=== PATIENT | female | born 1970 | race Caucasian/White ===

== ENCOUNTER 2019-08-30 14:59 | Inpatient (IN) | payer OTHER ==
[~2019-08-30] VITALS: Ht 157.5 cm; Wt 91.5 kg
[2019-08-30] MEDS ORDERED: tylenol 2 tabs (15:07)
[2019-08-30] MEDS ORDERED: KEFL250C11 (17:08)
[2019-08-30] MEDS ORDERED: PHEN-501 (17:08)
[2019-08-30] MEDS ORDERED: NS 1,000 ML IV ONE (17:15)
[2019-08-30] MEDS ORDERED: PANTOPRAZOLE 40MG INJ (PROTONIX) (C9113) IV ONE (17:15)
[2019-08-30] MEDS ORDERED: KETOROLAC 30 MG/ML VIAL (J1885) IV ONE (17:15)
[2019-08-30] MEDS ORDERED: ONDANSETRON 4MG/2ML VIAL (J2405) IV ONE (17:15)
[2019-08-30 17:31] LABS: BASO # 0.1 10^3/uL (0.0-0.2); BASO % 0.3 % (0.0-1.0); EOS % 0.1 % (0.0-3.0); HEMATOCRIT 35.2 % (36.0-47.0); HEMOGLOBIN 11.1 g/dl (12.0-15.5); LYMPH # 2.2 10^3/uL (1.5-5.0); LYMPH % 7.8 % (24.0-44.0); MEAN CORPUSCULAR HEMOGLOBIN 32.5 pg (27.0-33.0); MEAN CORPUSCULAR HGB CONC 31.5 g/dl (32.0-36.5); MEAN CORPUSCULAR VOLUME 102.9 fl (80.0-96.0); MONO # 1.9 10^3/uL (0.0-0.8); MONO % 6.6 % (0.0-5.0); NEUTROPHILS % 83.1 % (36.0-66.0); PLATELET COUNT, AUTOMATED 447 10^3/uL (150-450); RED BLOOD COUNT 3.42 10^6/uL (4.00-5.40); WHITE BLOOD COUNT 28.9 10^3/uL (4.0-10.0)
[2019-08-30 17:47] LABS: ALBUMIN 2.6 GM/DL (3.2-5.2); ALT/SGPT 63 U/L (12-78); BILIRUBIN,DIRECT 0.4 MG/DL (0.0-0.2); BILIRUBIN,TOTAL 0.8 MG/DL (0.2-1.0); BLOOD UREA NITROGEN 9 MG/DL (7-18); CALCIUM LEVEL 8.7 MG/DL (8.5-10.1); CARBON DIOXIDE LEVEL 29 MEQ/L (21-32); CHLORIDE LEVEL 101 MEQ/L (98-107); CREATININE FOR GFR 0.75 MG/DL (0.55-1.30); GLOMERULAR FILTRATION RATE > 60.0 (>58); GLUCOSE, FASTING 131 MG/DL (70-100); LIPASE 58 U/L (73-393); POTASSIUM SERUM 3.4 MEQ/L (3.5-5.1); SODIUM LEVEL 139 MEQ/L (136-145); TOTAL PROTEIN 6.9 GM/DL (6.4-8.2)
[2019-08-30] MEDS: NS 1,000 ML IV SCH ×3 (19:06→22:41)
--- NOTE | 2019-08-30 19:16 | REPVR ---
PROCEDURE INFORMATION: Exam: CT Abdomen And Pelvis Without Contrast Exam date and time: 08/30/2019 5:48 PM Age: 49 years old Clinical indication: Abdominal pain; Additional info: Abd pain TECHNIQUE: Imaging protocol: Computed tomography of the abdomen and pelvis without contrast. Radiation optimization: All CT scans at this facility use at least one of these dose optimization techniques: automated exposure control; mA and/or kV adjustment per patient size (includes targeted exams where dose is matched to clinical indication); or iterative reconstruction. COMPARISON: No relevant prior studies available. FINDINGS: Liver: Fatty infiltration of the liver. Liver is enlarged and measures 21 cm. Gallbladder and bile ducts: Normal. No calcified stones. No ductal dilation. Pancreas: Normal. No ductal dilation. Spleen: Normal. No splenomegaly. Adrenals: Normal. No mass. Kidneys and ureters: There is right hydronephrosis and hydroureter. Mild caliceal prominence and ureteral prominence on the left. Stomach and bowel: Scattered diverticulosis of the sigmoid colon. Appendix: No evidence of appendicitis. Intraperitoneal space: Unremarkable. No free air. No significant fluid collection. Vasculature: Unremarkable. No abdominal aortic aneurysm. Lymph nodes: There are multiple para-aortic lymph nodes with the largest measuring 1.2 cm in the left para-aortic region. Bladder: Unremarkable as visualized. Reproductive: The intrauterine device is seen. Bicornuate enlarged uterus. The intrauterine device lies in the lower uterine segment. The uterus is heterogenous and measures 7.6 x 11.4 x 11.4 cm. There is periuterine fat stranding. Bones/joints: Unremarkable. No acute fracture. Soft tissues: Unremarkable. IMPRESSION: Uterus is enlarged and heterogeneous with periuterine fat stranding with multiple prominent lymph nodes in the para-aortic region with bilateral hydronephrosis and hydroureter, right greater than left. Finding may represent uterine infection or malignancy or both. The intrauterine device lies abnormally in the lower uterine segment, increasing the possibility of fertility. DJ INSTRUCTOR consult is recommended with further evaluation of the uterus with ultrasound. Hepatomegaly with hepatic steatosis. Electronically signed by: Pedro Frankel On 08/30/2019 19:16:21 PM
[2019-08-30] MEDS ORDERED: cefTRIAXone SOD 1 GM in D5W MINI-BAG PLUS 50 ML IV ONE (20:30)
[2019-08-30] MEDS ORDERED: DOXYCYCLINE HYCLATE 100 MG TAB PO SCH (21:00)
[2019-08-30 21:32] LABS: CHLAMYDIA DNA AMPLIFICATION NEGATIVE (NEGATIVE); GC DNA AMPLIFICATION NEGATIVE (NEGATIVE)
[2019-08-30] MEDS ORDERED: PROAAER10 INH (21:39)
[2019-08-30] MEDS ORDERED: ALEV220T22 PO (21:39)
[2019-08-30] MEDS ORDERED: ACET-897 PO (21:39)
[2019-08-30] MEDS ORDERED: hydrOXYzine 10 MG TAB PO STA (21:43)
--- NOTE | 2019-08-30 21:44 | REPVR ---
PROCEDURE INFORMATION: Exam: US Pelvis Complete, Transabdominal Exam date and time: 08/30/2019 8:31 PM Age: 49 years old Clinical indication: Abnormal findings; Abnormal imaging test; Additional info: Uterine stranding TECHNIQUE: Imaging protocol: Real-time transabdominal pelvic ultrasound with image documentation. Complete exam. COMPARISON: CT ABD PELVIS W/O CONTRAST 08/30/2019 5:46 PM FINDINGS: Uterus/cervix: Intrauterine device is in the lower uterine segment. Endometrial thickness is normal at 6 mm. The uterus is mildly enlarged measuring 14 x 7 x 6 cm. No discrete measurable uterine or endometrial mass is seen. Right adnexa: Right ovary is enlarged measuring 8.2 x 6.2 x 6.3 cm. Multiple complex cystic areas are present within the right ovary measuring up to 5.5 cm. Normal with Doppler blood flow in the right ovary. No hydrosalpinx. Left adnexa: Left ovary is enlarged measuring 6.9 x 6.7 x 6.3 cm. Normal blood flow in the left ovary. Multiple complex cystic areas are present in the left ovary, similar to the right side. No hydrosalpinx. Free fluid: None. Bladder: Normal. IMPRESSION: 1. Heterogeneous enlarged uterus. Ovaries also appear large and heterogeneous, but the ovaries are not separable from the adjacent uterus. Findings may be due complex cysts in the ovaries. However findings may be secondary to a bicarbonate uterus with multiple fibroids. Pelvic MRI may be beneficial to better delineate the anatomy. 2. IUD lies in the lower uterine segment. 3. No evidence of torsion. Electronically signed by: Bud Arora On 08/30/2019 21:44:20 PM
[2019-08-30] MEDS ORDERED: LORazepam 1 MG TAB PO STA (22:33)
[2019-08-30] MEDS ORDERED: lisinopriL 10 MG TAB PO ONE (22:45)
[2019-08-30] MEDS ORDERED: POTASSIUM CHLORIDE 10 MEQ SR TABLET PO ONE (23:00)
[2019-08-31] VITALS: BP 154/99
[2019-08-31 00:15] VITALS: BP 154/99
[2019-08-31] MEDS: ACETAMINOPHEN TAB 650MG DOSE (2X325MG) PO PRN ×3 (00:16→14:30)
[2019-08-31] MEDS ORDERED: KETOROLAC 30 MG/ML VIAL (J1885) IV ONE ×3 (02:15→18:30)
[2019-08-31] MEDS: cefoTEtan DISODIUM 2 GM in D5W MINI-BAG PLUS 50 ML IV SCH ×2 (05:48→18:28)
[2019-08-31 06:00] VITALS: BP 113/70
[2019-08-31 06:46] LABS: HEMATOCRIT 31.2 % (36.0-47.0); HEMOGLOBIN 10.1 g/dl (12.0-15.5); MEAN CORPUSCULAR HEMOGLOBIN 33.4 pg (27.0-33.0); MEAN CORPUSCULAR HGB CONC 32.4 g/dl (32.0-36.5); MEAN CORPUSCULAR VOLUME 103.3 fl (80.0-96.0); PLATELET COUNT, AUTOMATED 418 10^3/uL (150-450); RED BLOOD COUNT 3.02 10^6/uL (4.00-5.40); WHITE BLOOD COUNT 24.2 10^3/uL (4.0-10.0)
[2019-08-31 07:05] LABS: BLOOD UREA NITROGEN 13 MG/DL (7-18); CALCIUM LEVEL 8.1 MG/DL (8.5-10.1); CARBON DIOXIDE LEVEL 28 MEQ/L (21-32); CHLORIDE LEVEL 103 MEQ/L (98-107); CREATININE FOR GFR 0.74 MG/DL (0.55-1.30); GLOMERULAR FILTRATION RATE > 60.0 (>58); GLUCOSE, FASTING 132 MG/DL (70-100); POTASSIUM SERUM 4.1 MEQ/L (3.5-5.1); SODIUM LEVEL 138 MEQ/L (136-145)
[2019-08-31 07:39] LABS: HCG, SERUM QUALITATIVE NEGATIVE (NEGATIVE)
[2019-08-31] MEDS ORDERED: DOCUSATE SODIUM 100 MG CAP PO PRN (08:45)
[2019-08-31] MEDS ORDERED: INFLUENZA QUADRIVALENT PF VACCINE 0.5ML SYRINGE (90686) IM ONE (09:00)
[2019-08-31] MEDS: ENOXAPARIN 40 MG/0.4 ML SYRINGE (J1650) SC SCH (09:00)
--- NOTE | 2019-08-31 09:00 | HPE ---
DATE OF ADMISSION: 08/30/2019 CHIEF COMPLAINT: Abdominal pain and abnormal laboratories. HISTORY OF PRESENT ILLNESS: This is a 49-year-old female who began having abdominal pain, constipation and fevers approximately a week and half ago on Thursday08/20/2019. She states that the night before she was having a few drinks with a friend and they spent the evening in the hot tub relaxing. She woke up on 08/20/2019, constipated with fevers and chills. She was having abdominal pain and she was unable to have a bowel movement. She waited for about a week before presenting to Urgent Care on 08/28/2019 where she was diagnosed with a urinary tract infection. She was put on cephalexin for 2 days and was called back by the urgent care stating that her urine culture had been negative. She went back to the urgent care this morning on 08/30/2019 and was subsequently sent to the emergency department for high labs. She is a G3, P2-0-1-2, 49-year-old female. She has an intrauterine device (IUD) (ParaGard) that she has had for about 7 to 10 years. She says that her last intercourse was about 1 month ago. She has had no new partners and has been with the same partner for years. She denies any dyspareunia, dysuria or history of sexually transmitted infections. Her last Pap was about 15 years ago, which was positive for HPV and dysplasia. This was treated with a LEEP and she has had no abnormal Pap smear since. She is due for a Pap in the next month or so. She does have a history of using oral contraceptive pills when she was in her teenage years. She does not remember whether these were estrogen only or combined. She was also previously on a NuvaRing. Upon arrival to the emergency department, she was found to have an elevated white count at 28.9 with a left shift. Pelvic exam revealed a bright green vaginal discharge with mild cervical motion tenderness. Swabs taken were negative for gonorrhea, chlamydia and trichomoniasis. CT of the abdomen revealed a heterogeneous enlarged uterus with her uterine fat stranding and periaortic lymphadenopathy as well as right hydronephrosis and hydroureter. The urinalysis also showed urine WBCs too numerous to count, 3+ leukocyte esterase. 76 urine RBCs, 2+ bacteria and nitrite positive. Subsequently, the hospitalist service was called for admission. PAST MEDICAL HISTORY: History of bronchitis several months ago. History of tobacco abuse, quit in April. PAST SURGICAL HISTORY: None. ALLERGIES: None. FAMILY HISTORY: No family history of uterine, ovarian, endometrial or breast cancer. No family history of liver syndrome. Her father 6 months ago, she does not remember the cause. Her brother is dying from amyotrophic lateral sclerosis (ALS). HOME MEDICATIONS: - Tylenol 500 mg every 6 hours as needed for pain - albuterol sulfate inhaler 2 puffs inhaled four times a day as needed for shortness of breath - Naproxen 440 mg by mouth twice a day as needed for pain REVIEW OF SYSTEMS: CONSTITUTIONAL: Positive for fevers and chills with a maximum temperature (t-max) of 103 about 3 days ago. Denies drenching night sweats or changes to her weight. EYES: Denies any visual changes, headaches, eye pain, double vision. EARS, NOSE AND THROAT: Denies runny nose, epistaxis, sinus pain, stuffy ears, tinnitus, gingival bleeding, sore throat or odynophagia. CARDIOVASCULAR: Denies any new chest pain, shortness of breath, paroxysmal nocturnal dyspnea, orthopnea or edema. RESPIRATORY: Denies any cough, sputum, wheezes or hemoptysis. GASTROINTESTINAL:. Positive for abdominal pain and constipation and denies any nausea, vomiting, diarrhea, obstipation, hematemesis, hematochezia, melena or tenesmus. She does endorse feeling like her abdomen has gotten slightly larger over the last couple of weeks. GENITOURINARY: Denies any incontinence, dysuria, hematuria, nocturia, polyuria, hesitancy or dribbling. MUSCULOSKELETAL: Denies any new muscle pain, stiffness, joint swelling or decreased range of motion. INTEGUMENTARY: Denies any pruritus, rashes, striae, or lesions. NEUROLOGIC: Denies any changes to sight / smell / hearing / taste, seizures, headaches. PSYCHIATRIC: Positive for some anxiety. Denies any new depression, paranoia, anhedonia or episodes of brian. ENDOCRINE: Denies any tremor, palpitations or visual disturbances, denies dry skin. Positive for irregular periods over the last year, as well as hot flashes. HEMATOLOGIC: Denies any anemia, purpura or petechiae. Denies easy bruising or bleeding. LYMPHATIC: Denies any new lumps or bumps anywhere. PHYSICAL EXAMINATION: Vitals: Temperature 97.8, pulse is 102 and regular, respiratory rate 16 and unlabored, blood pressure 173/92, pulse ox is 95% on room air. GENERAL: This is a middle-aged obese female in no acute distress. HEENT: Atraumatic, normocephalic. Anicteric sclera. No conjunctival injection, mucous membranes are moist. No deformities are noted. NECK: No jugular venous distention (JVD), supple, no masses. No thyromegaly. LUNGS: Clear to auscultation bilaterally. No wheezes, rhonchi or rales. HEART: Regular rate and rhythm. Mildly tachycardiac. No murmurs, gallops or rubs. ABDOMEN: Obese, somewhat protuberant. No tympany to percussion. Mild tenderness to palpation in the lower quadrants. The uterine fundus is palpated 2 cm below the umbilicus. No inguinal adenopathy is noted. EXTREMITIES: Muscle strength 5/5 throughout. No lower extremity edema bilaterally. Capillary refill is brisk and pulses are 2+ bilaterally for both posterior tibialis and dorsalis pedis NEUROLOGIC: Cranial nerves II-XII grossly intact. Deep tendon reflexes 2+ bilaterally. Sensation is intact. Muscle strength is 5/5 bilaterally. No neurological deficits noted. PSYCHIATRIC: Mood is mildly anxious, but affect is appropriate. SKIN: No rashes or lesions were noted. LABORATORY DATA: CBC: WBC 28.9, hemoglobin 11.1, hematocrit 35.2, platelet count is 447. Differential shows 83% neutrophils, 8% lymphocytes 7% monocytes. Chemistry: Sodium 134, potassium 3.4, chloride 101, carbon dioxide 29, anion gap 9, BUN 9, creatinine 0.75, glucose 131, calcium 8.7, total bilirubin 0.8, direct bilirubin 0.4, AST 35, ALT 63, alkaline phosphatase 166, total protein 6.9, albumin 2.6, lipase 58. Urinalysis: Cloudy and esther in appearance with a pH of 5.0, specific gravity of 1.010. Urine protein 1+, trace ketones, 1+ blood and positive nitrites. Urobilinogen 2.0, 3+ leukocyte esterase, urine WBCs too numerous to count, urine RBCs 76, urine bacteria 2+. Serology: Gonorrhea, chlamydia and trichomoniasis negative. Microbiology: Wet prep showed moderate epithelial cells, moderate WBCs, many short rods and a few clue cells. Cervical culture Gram stain and genital culture pending. Urine culture pending. IMAGING STUDIES: CT of the abdomen and pelvis showed an enlarged and heterogeneous uterus measuring 7.6 x 11.4 x 11.4 cm with periuterine fat stranding with an IUD in the lower uterine segment. Multiple periaortic lymph nodes with the largest measuring 1.2 cm in the left para-aortic region. Right hydronephrosis and hydroureter with mild caliceal prominence and ureteral prominence on the left. Scattered diverticulosis of the sigmoid colon. Hepatomegaly with hepatic steatosis. Pelvic ultrasound shows a heterogeneous enlarged uterus measuring 14 x 7 x 6 cm without any discrete measurable uterine or endometrial mass. Enlarged to right and left ovaries, the right ovary has multiple complex cystic areas measuring up to 5.5 cm and the left ovary has multiple complex cystic areas as well. IUD in the lower uterine segment. ASSESSMENT: This is a 49-year-old G3, P 2-0-1-2 presenting with constipation, fevers and chills with a maximum temperature (t-max) of 103 about 3 days ago found to have uterine enlargement on imaging and an elevated white count of 20.9. PLAN: 1. Sepsis secondary to uterine pathology. Elevated white count, fevers and tachycardia. We will cover for pelvic inflammatory disease with cefotetan 2 grams IV q. 12 and doxycycline 100 mg p[address]o. q. [address] Horne from [facility] was consulted, we appreciate his help. Gonorrhea, chlamydia and trichomonas were negative. Cervical culture is pending. We will also obtain blood cultures, though the patient was already treated with Rocephin in the emergency room. Wet prep showed moderate epithelial cells, moderate WBCs, many short rods and a few clue cells. CA-125 has been ordered to assess for malignancy. 2. Deep vein thrombosis (DVT) prophylaxis with Lovenox. DISPOSITION: Admit to medical/surgical inpatient as we expect more than two midnights.
[2019-08-31] MEDS: DOXYCYCLINE HYCLATE 100 MG in D5W MINI-BAG PLUS 100 ML IV SCH ×2 (09:25→21:26)
--- NOTE | 2019-08-31 10:14 | CR ---
DATE OF CONSULTATION: 08/31/2019 CONSULTING SERVICE: [facility] RIDES MANAGER. HISTORY: 49-year-old female with abdominal pain, constipation and fevers starting approximately 7-10 days prior to admission. The night before, she started having problems. She spent the evening with friends and was relaxing in a hot tub. She woke up on 08/20/2019 with fevers and chills. The fever was as high as 103 Fahrenheit. She waited a week to see if it improved, but continued to have fevers on and off. Her abdominal pain which was sharp and intermittent gradually improved. She presented to urgent care and was started on Keflex for a possible urinary tract infection (UTI). She subsequently presented to the emergency department with persistent fevers. She has had an intrauterine device in place for 7 years. She has had no sexual activity in the last month. She has one partner for many years. MEDICAL HISTORY: 1. Bronchitis. 2. History of tobacco use. She quit cigarettes in April 2019. SURGICAL HISTORY: section times two. ALLERGIES: None. FAMILY HISTORY: No family history of gynecologic malignancy. Her brother has been diagnosed with amyotrophic lateral sclerosis (ALS). SOCIAL HISTORY: The patient lives in [place]. She quit cigarettes. She denies drug use. MEDICATIONS: - Tylenol - albuterol - naproxen PHYSICAL EXAMINATION: Temperature 97.8, pulse 102, respiratory rate 16, blood pressure 173/92, oxygen saturation 95% on room air. She is in no apparent distress. Head and Neck Exam: Normal. Lungs: Clear. Heart: Regular rate and rhythm. Abdomen: Nontender to mild palpation. Soft. No masses palpable. Extremities: Nontender. Neurologically intact cranial nerves. Extremities: Nontender. LABS: White blood count 28.9, hemoglobin 11.1 grams per deciliter. Ultrasound shows enlarged uterus 14 x 7 x 6 cm, possibly enlarged right and left ovaries with complex cystic areas. CT scan confirms presence of pelvic masses and possible mildly enlarged periaortic lymph nodes. Mild right hydronephrosis. Mild hepatomegaly. ASSESSMENT: 49-year-old, (G) 3, para (P) 2-0-1-2 female with abdominal pain and fevers consistent with probable pelvic inflammatory disease. Treat with appropriate antibiotics for pelvic inflammatory disease (PID). Will look for clinical improvement over 48 hours prior to discharge. In the meantime, will draw labs for tumor markers to assess for possible malignancy. Will continue to follow. Appreciate this consult.
[2019-08-31] MEDS ORDERED: metroNIDAZOLE 500 MG in IV 1 EA IV SCH (10:15)
--- NOTE | 2019-08-31 10:37 | IPNPDOC ---
Text Note Date of Service The patient was seen on 08/31/19. NOTE Subjective: Patient is a 49-year-old female presented to the hospital with se lang lower abdominal pain. Patient states that she went into a hot tub had not been treated with any chemicals for some time a few weeks ago. She states that she also started feeling feverish and took her temperature and had a fever. She went to the urgent care who initially diagnosed her with a urinary tract infection and gave her cephalexin for antibiotics. The urine culture came back negative so they called her and told her she does not need to continue with antibiotics. She also took Pyridium which did not help with her pain. She still states that she has lower abdominal pain at this time. She states that she feels constipated when she gets her menstrual cycle as she does not want to push too hard to have a bowel movement as she is afraid that she will bleed. Patient says since being in the hospital, she does not feel feverish however, her pain is still mildly uncontrolled. Patient is very anxious because one of the imaging studies that was performed so there may be a possible malignancy however, the ultrasound did not make mention of this and that report and this was performed a fter the CT scan. Patient is very concerned that she may have a possible malignancy. Patient states that she is feeling somewhat better with IV fluid hydration. Review of systems General: Patient denies fevers HEENT: Patient denies headaches Cardiovascular: Patient denies chest pain Respiratory: Patient denies shortness of breath, cough GI: Patient endorses lower abdominal pain. : Patient endorses increased frequency of urination Neurological: Patient denies numbness or tingling in extremities Extremities: Patient denies swelling or pain in extremities Objective: Vitals: (see below) General: An oriented female patient who was walking gingerly out of the bathroom back to her bed when I walked into the room. Patient did not appear to be in any acute distress. HEENT: Normocephalic, atraumatic, moist mucous membranes. Cardiac: Regular rate and rhythm, no murmurs, normal S1, normal S2 Pulm: Clear to auscultation bilaterally. No wheezes, rhonchi, rales Abd: Mild tenderness to palpation of the lower abdominal quadrants and suprapubic area. Ext: No edema bilateral lower extremities Labs (see below) Images: A CT of the abdomen and pelvis without contrast performed on 08/30/2019 was reported to show uterus is enlarged and heterogeneous with periuterine fat stranding with multiple prominent lymph nodes in the periaortic region with bilateral hydronephrosis and hydroureter, right greater than left. Findings may represent uterine infection or malignancy or both. Intrauterine device lies abnormally in the lower uterine segment, increasing the possibility of fertility. Gynecology consult is recommended with further evaluation of the uterus with ultrasound. Hepatomegaly with hepatic steatosis. An transabdominal ultrasound of the pelvis performed on 08/30/2019 showed intrauterine device in the lower uterine segment, endometrial thickness is normal at 6 mm. The uterus is mildly enlarged measuring 14 x 7 x 6 cm. No discrete measurable uterine or endometrial mass is seen. Right adnexa shows a right ovary that is enlarged measuring 8.2 x 6.2 x 6.3 cm. Multiple complex cystic areas are present in the right ovary measuring up to 5.5 cm. Normal with Doppler blood flow in the right ovary. No hydrosalpinx. Left adnexa shows left ovary that is enlarged measuring 6.9 x 6.7 x 6.3 cm. Normal blood flow in the left ovary. Multiple complex cystic areas are present in the left ovary, similar to the right side. No hydrosalpinx. No free fluid in the bladder appears normal. Assessment: Patient is a 49-year-old female who presented to the hospital with fevers and lower abdominal pain which is thought to be secondary to pelvic inflammatory disease. Plan 1. Sepsis secondary to uterine pathology, pelvic inflammatory disease. Patient elevated white count, fevers, and tachycardia upon admission. Patient has been given cefotetan 2 g IV every 12 hours and doxycycline 100 mg by mouth every [address] Corbin from [facility] has seen the patient and agrees with this management. He also agrees that this presents pelvic inflammatory disease. Patient will also have tumor markers drawn to help rule out malignancy. We will continue to monitor the patient. Patient urine also shows that she may have a urinary tract infection which is also being covered with antibiotics. We will also await urinary culture results. Patient is currently receiving acetaminophen for pain control as well as Toradol. We will continue monitor the renal function. 2. Anxiety. Patient has been started on hydroxyzine 25 mg every 6 hours. DVT prophy: Lovenox 40 mg daily. Dispo: Pending clinical improvement VS,Deysi, I+O VS, Fishbone, I+O Laboratory Tests 08/30/19 17:13 08/31/19 06:20 Vital Signs Date Time Temp Pulse Resp B/P (MAP) Pulse Ox O2 Delivery O2 Flow Rate FiO2 08/31/19 06:00 99.5 106 18 113/70 (84) 96 Room Air I&O- Last 24 Hours up to 6 AM 08/31/19 06:00 Intake Total 2790 ml Output Total 0 ml Balance 2790 ml GME ATTESTATION GME ATTESTATION My faculty preceptor for this patient encounter was physically present during the encounter and was fully available. All aspects of the patient interview, examination, medical decision making process, and medical care plan development were reviewed and approved by the faculty preceptor. The faculty preceptor is aware and concurs with the plan as stated in the body of this note and will attest to such by his/her cosignature. ATTENDING NOTE I, Sandra Cohen, have independently examined this patient and performed my own physical exam, as well as reviewed the documentation and edited where necessary. I have discussed in detail with the resident / student the findings and plan of treatment as documented by the resident / student and edited their note. I agree with their findings and treatment plan and have edited their documentation. I will continue to follow the patient during this hospital stay. MARYANN ELLISON DO Aug 31, 2019 10:37 SANDRA COHEN MD Aug 31, 2019 12:34
--- NOTE | 2019-08-31 11:20 | REP ---
Clinical: Pelvic inflammatory disease . Comparison: None . Technique: PA and lateral. Findings: The mediastinum and cardiac silhouette are normal. The lung cortez are clear and without acute consolidation, effusion, or pneumothorax. The skeletal structures are intact and normal. Impression: 1. No acute cardiopulmonary process. Electronically Signed by Chris Roman MD 08/31/2019 11:11 A
[2019-08-31] MEDS: metroNIDAZOLE (FLAGYL) 500 MG TAB PO SCH ×2 (12:40→21:26)
[2019-08-31] MEDS: NS 1,000 ML IV SCH (13:12)
[2019-08-31 14:00] VITALS: BP 140/78
[2019-08-31 20:16] VITALS: BP 135/78
[2019-08-31] MEDS: ALPRAZolam 0.5 MG TAB PO PRN (22:39)
[2019-09-01] MEDS: ACETAMINOPHEN TAB 650MG DOSE (2X325MG) PO PRN ×2 (01:23→12:00)
[2019-09-01] MEDS: NS 1,000 ML IV SCH ×2 (01:23→11:12)
[2019-09-01] MEDS: hydrOXYzine 25 MG TAB PO PRN ×2 (01:24→20:00)
[2019-09-01] MEDS: KETOROLAC 30 MG/ML VIAL (J1885) IV PRN ×2 (01:35→09:11)
[2019-09-01 06:02] VITALS: BP 119/80
[2019-09-01] MEDS: cefoTEtan DISODIUM 2 GM in D5W MINI-BAG PLUS 50 ML IV SCH (06:02)
[2019-09-01 08:16] LABS: BASO # 0.1 10^3/uL (0.0-0.2); BASO % 0.3 % (0.0-1.0); EOS # 0.2 10^3/uL (0.0-0.5); EOS % 1.1 % (0.0-3.0); HEMATOCRIT 28.9 % (36.0-47.0); HEMOGLOBIN 9.5 g/dl (12.0-15.5); LYMPH # 1.7 10^3/uL (1.5-5.0); LYMPH % 9.7 % (24.0-44.0); MEAN CORPUSCULAR HEMOGLOBIN 33.8 pg (27.0-33.0); MEAN CORPUSCULAR HGB CONC 32.9 g/dl (32.0-36.5); MEAN CORPUSCULAR VOLUME 102.8 fl (80.0-96.0); MONO # 1.2 10^3/uL (0.0-0.8); MONO % 6.4 % (0.0-5.0); NEUTROPHILS # 14.3 10^3/uL (1.5-8.5); NEUTROPHILS % 80.4 % (36.0-66.0); PLATELET COUNT, AUTOMATED 414 10^3/uL (150-450); RED BLOOD COUNT 2.81 10^6/uL (4.00-5.40); WHITE BLOOD COUNT 17.9 10^3/uL (4.0-10.0)
[2019-09-01 08:32] LABS: CALCIUM LEVEL 7.4 MG/DL (8.5-10.1); CREATININE FOR GFR 1.13 MG/DL (0.55-1.30); GLOMERULAR FILTRATION RATE 54.9 (>58); MAGNESIUM LEVEL 2.2 MG/DL (1.8-2.4); POTASSIUM SERUM 3.8 MEQ/L (3.5-5.1)
[2019-09-01 08:40] VITALS: BP 118/70
[2019-09-01] MEDS: ENOXAPARIN 40 MG/0.4 ML SYRINGE (J1650) SC SCH (09:00)
[2019-09-01] MEDS: metroNIDAZOLE (FLAGYL) 500 MG TAB PO SCH ×2 (09:03→19:59)
[2019-09-01] MEDS: SENOKOT S TAB PO SCH ×2 (09:03→20:00)
[2019-09-01] MEDS: DOXYCYCLINE HYCLATE 100 MG TAB PO SCH ×2 (09:03→19:59)
[2019-09-01] MEDS: ALPRAZolam 0.5 MG TAB PO PRN (10:13)
--- NOTE | 2019-09-01 10:21 | IPNPDOC ---
Text Note Date of Service The patient was seen on 09/01/19. NOTE Subjective: Patient is a 49-year-old female who presented to the hospital with lower abdominal pain and was subsequently diagnosed with pelvic inflammatory disease. Overnight patient did have one fever of 100.5 at 2016. Patient has been afebrile since. Patient states that her abdominal pain is improving and she is hungry and would like to eat something. Patient has been getting Toradol for pain which is helped with her pain. Patient says she has not had a bowel movement yet and would like something more for constipation. Patient is feeling better however, still is experiencing abdominal pain. Patient says that she went to urinate and had some purulent material in the toilet after urination. Patient does not have any dysuria or increased frequency. Review of systems General: Patient denies fevers HEENT: Patient denies headaches Cardiovascular: Patient denies chest pain Respiratory: Patient denies shortness of breath, cough GI: Patient endorses lower abdominal pain and constipation. : Patient endorses some purulent drainage while urinating however, she denies any increased frequency or dysuria. Extremities: Patient denies swelling or pain in extremities Objective: Vitals: (see below) General: Alert and oriented female patient who was sitting in the bed when I walked in the room. Patient was in no acute distress. HEENT: Normocephalic, atraumatic, moist mucous membranes. Neck: No lymphadenopathy or thyromegaly Cardiac: Regular rate and rhythm, no murmurs, normal S1, normal S2 Pulm: Clear to auscultation bilaterally. No wheezes, rhonchi, rales Abd: Mild to moderate abdominal tenderness in the lower quadrants and suprapubic area. No rebound tenderness. Normoactive bowel sounds Ext: No edema bilateral lower extremities Labs (see below) Images: No imaging has been performed Assessment: Patient is a 49-year-old female who presents with lower abdominal pain after going into an untreated hot tub who was diagnosed with pelvic inflammatory disease. Plan 1. Pelvic inflammatory disease. Patient is clinically improving however, she still had a fever at 20:16 last evening of 100.5. Patient had been getting Toradol 30 mg IV for pain control and fever control. Patient was on cefotetan and IV doxycycline. Patient was given 1 dose of IM ceftriaxone 250 mg. Patient has been transitioned to doxycycline oral 100 mg twice a day and metronidazole 500 mg twice a day. These will both be for 14 day courses. Doxycycline and date will be 09/13/2019 and metronidazole and they will be 09/14/2019. 2. Acute kidney injury patient's creatinine went from 0.74-1.13 with a worsening of her GFR from greater than 60-54.9. This is most likely secondary to Toradol being given. Toradol has been stopped and IV fluids are going to continue at 70 mL per hour. We will continue to monitor the patient's renal function tomorrow. 3. Anxiety. Patient was started on hydroxyzine 25 mg every 6 hours when necessary she does receive 1 dose of this. Patient also has Xanax 0.5 mg twice a day when necessary. DVT prophy: Lovenox 40 mg Dispo: Pending improvement of the patient's renal function off Toradol and afebrile for greater than 24 hours. VS,Fishbone, I+O VS, Fishbone, I+O Laboratory Tests 09/01/19 07:44 Vital Signs Date Time Temp Pulse Resp B/P (MAP) Pulse Ox O2 Delivery O2 Flow Rate FiO2 09/01/19 08:40 98.5 100 18 118/70 (86) 09/01/19 06:02 97 Room Air I&O- Last 24 Hours up to 6 AM 09/01/19 06:00 Intake Total 3960 ml Output Total 1525 ml Balance 2435 ml GME ATTESTATION GME ATTESTATION My faculty preceptor for this patient encounter was physically present during the encounter and was fully available. All aspects of the patient interview, examination, medical decision making process, and medical care plan development were reviewed and approved by the faculty preceptor. The faculty preceptor is aware and concurs with the plan as stated in the body of this note and will attest to such by his/her cosignature. ATTENDING NOTE I, Sandra Cohen, have independently examined this patient and performed my own physical exam, as well as reviewed the documentation and edited where necessary. I have discussed in detail with the resident / student the findings and plan of treatment as documented by the resident / student and edited their note. I agree with their findings and treatment plan and have edited their documentation. I will continue to follow the patient during this hospital stay. MARYANN ELLISON DO Sep 01, 2019 10:21 SANDRA COHEN MD Sep 01, 2019 12:09
[2019-09-01 10:32] LABS: HEMOGLOBIN A1c 6.1 %
[2019-09-01] MEDS ORDERED: cefTRIAXone SOD 250 MG VIAL (J0696) IM ONE (11:00)
[2019-09-01] MEDS ORDERED: LIDOCAINE 1% SDV 5 ML VIAL DILUENT ONE (11:00)
[2019-09-01 14:00] VITALS: BP 93/56
[2019-09-01 14:05] VITALS: BP 107/67
[2019-09-01] MEDS: PERCOCET 5MG/325MG TAB PO PRN (20:00)
[2019-09-01 22:00] VITALS: BP 116/71
[2019-09-02] MEDS: NS 1,000 ML IV SCH (00:13)
[2019-09-02] MEDS: PERCOCET 5MG/325MG TAB PO PRN ×2 (04:15→09:47)
[2019-09-02 06:09] VITALS: BP 124/79
[2019-09-02 07:28] LABS: BASO # 0.1 10^3/uL (0.0-0.2); BASO % 0.6 % (0.0-1.0); EOS # 0.3 10^3/uL (0.0-0.5); EOS % 2.5 % (0.0-3.0); HEMATOCRIT 28.2 % (36.0-47.0); HEMOGLOBIN 9.2 g/dl (12.0-15.5); LYMPH # 2.4 10^3/uL (1.5-5.0); LYMPH % 19.7 % (24.0-44.0); MEAN CORPUSCULAR HEMOGLOBIN 33.5 pg (27.0-33.0); MEAN CORPUSCULAR HGB CONC 32.6 g/dl (32.0-36.5); MEAN CORPUSCULAR VOLUME 102.5 fl (80.0-96.0); MONO # 1.3 10^3/uL (0.0-0.8); MONO % 10.4 % (0.0-5.0); NEUTROPHILS # 7.8 10^3/uL (1.5-8.5); NEUTROPHILS % 64.8 % (36.0-66.0); PLATELET COUNT, AUTOMATED 443 10^3/uL (150-450); RED BLOOD COUNT 2.75 10^6/uL (4.00-5.40); WHITE BLOOD COUNT 12.1 10^3/uL (4.0-10.0)
[2019-09-02 07:54] LABS: BLOOD UREA NITROGEN 10 MG/DL (7-18); CALCIUM LEVEL 8.2 MG/DL (8.5-10.1); CARBON DIOXIDE LEVEL 27 MEQ/L (21-32); CHLORIDE LEVEL 106 MEQ/L (98-107); CREATININE FOR GFR 0.64 MG/DL (0.55-1.30); GLOMERULAR FILTRATION RATE > 60.0 (>58); GLUCOSE, FASTING 113 MG/DL (70-100); POTASSIUM SERUM 3.7 MEQ/L (3.5-5.1); SODIUM LEVEL 140 MEQ/L (136-145)
[2019-09-02] MEDS: ENOXAPARIN 40 MG/0.4 ML SYRINGE (J1650) SC SCH (09:00)
[2019-09-02] MEDS ORDERED: PERCOCET PO (09:32)
[2019-09-02] MEDS ORDERED: FLAG500T PO (09:32)
[2019-09-02] MEDS ORDERED: DOXY100T PO (09:32)
[2019-09-02] MEDS: DOXYCYCLINE HYCLATE 100 MG TAB PO SCH (09:45)
[2019-09-02] MEDS: SENOKOT S TAB PO SCH (09:45)
[2019-09-02] MEDS: metroNIDAZOLE (FLAGYL) 500 MG TAB PO SCH (09:45)
[2019-09-02 09:48] LABS: CA 125 58.2 U/ML (<30.2)
[2019-09-02 09:49] LABS: CA19-9 TUMOR MARKER,CARBOHYDRA 3.4 U/ML (<35.0)
--- NOTE | 2019-09-02 10:02 | DS.PDOC ---
Discharge Summary General Date of Admission Aug 30, 2019 at 22:35 Date of Discharge 09/02/2019 Attending Physician: SANDRA COHEN MD Specialist/Consultants Involve: SAVANAH SHIELDS MD Discharge Summary PROCEDURES PERFORMED DURING STAY: None. ADMITTING/DISCHARGE DIAGNOSES: 1. Pelvic inflammatory disease 2. Mild acute kidney injury 3. Anxiety 4. Prediabetes COMPLICATIONS/CHIEF COMPLAINT: Lower abdominal pain HISTORY OF PRESENT ILLNESS/HOSPITAL COURSE: Patient is a 49-year-old female who began to have abdominal pain, constipation, and fevers approximately a week and half ago on 08/20/2019. She states that the night before she had a few drinks with friends and he spent the evening and untreated hot tub. Patient says she woke up the next morning with fever and chills. She says that she felt like she was constipated as she had not had a bowel movement. Patient says that usually on her menstrual cycle, she gets constipated. She does not want to try to bear down and have a bowel movement because of the cramping associated with her menstrual cycle. Patient states that she went to the urgent care on 08/28/2019 where she was diagnosed with urinary tract infection. She's been on cephalexin for 2 days and then she received a call the urgent care setting her urine culture was negative and was told to stop her antibiotics. Patient returned to urgent care on 08/30/2019 and was sent to the emergency room due to high labs. In the emergency department, patient had a pelvic exam performed which revealed bright green vaginal discharge with mild cervical motion tenderness. Sample were taken for gonorrhea, chlamydia, and Trichomonas which were all negative. A CT of the abdomen revealed a heterogeneous enlarged uterus with uterine fat stranding and periaortic lymphadenopathy as well as right hydronephrosis and hydroureter. Urinalysis showed urine white blood cells too numerous to count and 3+ leukocyte esterase. The hospitalist service was contacted for admission. Throughout the patient's admission to the hospital, patient was receiving antibi otics. Patient started with IV cefotetan and IV doxycycline for 2 days. Patient was then transitioned to oral doxycycline and 1 IM dose of ceftriaxone. Patient's wet prep also showed clue cells the patient was started on metronidazole on the second day of her hospitalization. Patient was given Toradol for pain control however, on this patient's second day of hospitalization, her creatinine became elevated to 1.13 from 0.74. Toradol was stopped and IV fluid hydration was continued. COACH BUILDER was consulted and Dr. Shields saw the patient and agreed with the assessment of pelvic inflammatory disease. Dr. Shields will follow-up with the patient in his office 2 weeks after discharge. On 09/02/2019, patient's creatinine returned to baseline, patient has been afebrile for greater than 24 hours, and patient clinically appears ready for discharge. Patient also had tumor markers ordered which are pending at the time of discharge. These should be followed up outpatient with COACH BUILDER. Patient was discharged home with doxycycline and metronidazole to complete a two-week course of antibiotic therapy. Patient's blood sugar had been elevated throughout the hospitalization and an A1c was ordered which was 6.1. I did have a conversation with the patient about what this means and that she follow-up with a primary care provider for further discussion and treatment of prediabetes. I did defer dietary counseling about avoiding carbohydrates and trying to eat a healthier diet with more vegetables and lean protein. DISCHARGE MEDICATIONS: Please see below. ALLERGIES: Please see below. PHYSICAL EXAMINATION ON DISCHARGE: Vitals: (see below) General: Alert and oriented female patient who was laying in bed when I walked in the room. Patient did not appear to be in any acute distress. HEENT: Moist mucous membranes. Neck: No JVD or lymphadenopathy Cardiac: RRR, No murmurs Pulm: Clear to auscultation b/l. No wheezing, rhonchi Abd: Minimal tenderness in the lower quadrants. Ext: No edema or cyanosis LABORATORY DATA: Please see below. IMAGING: A CT of the abdomen and pelvis performed without contrast on 08/30/2019 was reported to show uterus is enlarged and heterogeneous with periuterine fat stranding with multiple prominent lymph nodes in the periaortic region with bilateral hydronephrosis and hydroureter, right greater than left. Findings may represent uterine infection or malignancy or both. The uterine device lines abnormally in the lower uterine segment, increasing the possibility of fertility. ASSURANCE OFFICER consultation is recommended with further evaluation of the uterus with ultrasound. Hepatomegaly with hepatic steatosis. A trans-abdominal ultrasound performed on 08/30/2019 was reported to show heterogeneous enlarged uterus. Ovaries also appeared large and heterogeneous, but the ovaries are not separable from the adjacent uterus. Findings may be due to complex cysts in the ovaries. However findings may be secondary to a bicornate uterus with multiple fibroids. Pelvic MRI may be beneficial to better delineate the anatomy. IUD lives in the lower uterine segment. No evidence of torsion. A chest x-ray performed on 08/31/2019 was reported to show no acute cardiopulmonary process PROGNOSIS: Good ACTIVITY: As tolerated. DIET: Pre-diabetic diet consisting of low carbohydrate foods DISCHARGE PLAN/DISPOSITION: Discharge home DISCHARGE INSTRUCTIONS: 1. Follow-up with Dr. Shields in 2 weeks. 2. Follow-up on results of tumor markers. 3. Establish and follow up with a primary care provider for hospital follow-up and further health maintenance. 4. Continue doxycycline 100 mg by mouth twice a day until 09/13/2019. Continue metronidazole 500 mg by mouth twice a day until 09/14/2019. 5. Return to the ER if you experience any problems DISCHARGE CONDITION: Stable. TIME SPENT ON DISCHARGE: Greater than [address] Savanah Shields Vital Signs/I&Os Vital Signs Date Time Temp Pulse Resp B/P (MAP) Pulse Ox O2 Delivery O2 Flow Rate FiO2 09/02/19 09:47 18 Room Air 09/02/19 06:09 96.7 88 124/79 (94) 97 I&O- Last 24 Hours up to 6 AM 09/02/19 06:00 Intake Total 4071 ml Output Total 2300 ml Balance 1771 ml Laboratory Data Labs 24H Laboratory Tests 2 09/01/19 11:53: Bedside Glucose (Misc Panel) 81 09/01/19 18:05: Bedside Glucose (Misc Panel) 94 09/01/19 22:21: Bedside Glucose (Misc Panel) 146H 09/02/19 07:18: Immature Granulocyte % (Auto) 2.0, Neutrophils (%) (Auto) 64.8, Lymphocytes (%) (Auto) 19.7L, Monocytes (%) (Auto) 10.4H, Eosinophils (%) (Auto) 2.5, Basophils (%) (Auto) 0.6, Neutrophils # (Auto) 7.8, Lymphocytes # (Auto) 2.4, Monocytes # (Auto) 1.3H, Eosinophils # (Auto) 0.3, Basophils # (Auto) 0.1, Nucleated Red Blood Cells % (auto) 0.0, Anion Gap 7L, Glomerular Filtration Rate > 60.0, Calcium Level 8.2L, Magnesium Level 2.0 CBC/BMP Laboratory Tests 09/02/19 07:18 FSBS Laboratory Tests Test 09/01/19 11:53 09/01/19 18:05 09/01/19 22:21 Range/Units Bedside Glucose (Misc Panel) 81 94 146 70-105 MG/DL Microbiology Microbiology 08/31/19 Blood Culture - Preliminary, Resulted No Growth after 48 hours. All Specime... 08/31/19 Blood Culture - Preliminary, Resulted No Growth after 48 hours. All Specime... 08/30/19 Wet Prep - Final, Complete 08/30/19 Gram Stain - Final, Complete 08/30/19 Genital Culture - Final, Complete 08/30/19 Urine Culture - Final, Complete Discharge Medications Scheduled Doxycycline Hyclate (Doxycycline Hyclate) 100 Mg Tablet, 100 MG PO BID Metronidazole (Flagyl) 500 Mg Tablet, 500 MG PO BID Scheduled PRN Acetaminophen (Tylenol Extra Strength) 500 Mg Tablet, 500 MG PO Q6H PRN for PAIN, (Reported) Albuterol Sulfate (Proair Hfa) 8.5 Gm Hfa.aer.ad, 2 PUFF INH QID PRN for SHORTNESS OF BREATH, (Reported) Oxycodone/Acetaminophen (Oxycodone-Acetaminophen 5-325) 1 Each Tablet, 1 TAB PO Q8HP PRN for MILD/MODERATE PAIN (PS 1-7) Allergies Coded Allergies: No Known Allergies (Unverified , 08/30/19) GME ATTESTATION GME ATTESTATION My faculty preceptor for this patient encounter was physically present during the encounter and was fully available. All aspects of the patient interview, examination, medical decision making process, and medical care plan development were reviewed and approved by the faculty preceptor. The faculty preceptor is aware and concurs with the plan as stated in the body of this note and will attest to such by his/her cosignature. ATTENDING NOTE I, Sandra Cohen, have independently examined this patient and performed my own physical exam, as well as reviewed the documentation and edited where necessary. I have discussed in detail with the resident / student the findings and plan of treatment as documented by the resident / student and edited their note. I agree with their findings and treatment plan and have edited their documentation. I will continue to follow the patient during this hospital stay. Time spent on discharge 35 minutes TERRA,MARYANN DO Sep 02, 2019 10:02 SANDRA COHEN MD Sep 02, 2019 12:22
== END 2019-09-02 10:56 | disposition home or self-care (01) | DRG 720 ==
LOC: EDBD 14:59 → M ED 14:59 → M ED INP 22:35 → ENRESERV 22:46 → M MS5PR 08-31 00:03
PROVIDERS: ADMIT Internal Medicine; ATTEND Internal Medicine
DX: A41.9 Sepsis, unspecified organism (principal); N17.9 Acute kidney failure, unspecified; N73.0 Acute parametritis and pelvic cellulitis; F41.9 Anxiety disorder, unspecified; Z87.891 Personal history of nicotine dependence; Z79.899 Other long term (current) drug therapy

== ENCOUNTER → 2019-09-22 | Outpatient (REF) | payer OTHER ==
[~2019-09-22] MED LIST: ACET-897 PO; ALEV220T22 PO; DOXY100T PO; FLAG500T PO; KEFL250C11; PERCOCET PO; PHEN-501; PROAAER10 INH; tylenol 2 tabs
[2019-09-22 16:54] LABS: BASO # 0.1 10^3/uL (0.0-0.2); BASO % 1.6 % (0.0-1.0); EOS # 0.4 10^3/uL (0.0-0.5); HEMATOCRIT 39.6 % (36.0-47.0); HEMOGLOBIN 12.9 g/dl (12.0-15.5); LYMPH # 2.5 10^3/uL (1.5-5.0); MEAN CORPUSCULAR HEMOGLOBIN 33.4 pg (27.0-33.0); MEAN CORPUSCULAR HGB CONC 32.6 g/dl (32.0-36.5); MEAN CORPUSCULAR VOLUME 102.6 fl (80.0-96.0); MONO # 0.6 10^3/uL (0.0-0.8); MONO % 8.8 % (0.0-5.0); NEUTROPHILS # 3.4 10^3/uL (1.5-8.5); NEUTROPHILS % 48.3 % (36.0-66.0); PLATELET COUNT, AUTOMATED 236 10^3/uL (150-450); RED BLOOD COUNT 3.86 10^6/uL (4.00-5.40); WHITE BLOOD COUNT 7.1 10^3/uL (4.0-10.0)
[2019-09-22 16:56] LABS: APPEARANCE, URINE CLEAR (CLEAR); BACTERIA, URINE AUTO 1+ (NEGATIVE); BILIRUBIN, URINE AUTO NEGATIVE (NEGATIVE); BLOOD, URINE BLOOD NEGATIVE (NEGATIVE); COLOR, URINE YELLOW (YELLOW); GLUCOSE, URINE (UA) AUTO NEGATIVE (NEGATIVE); KETONE, URINE AUTO NEGATIVE (NEGATIVE); LEUKOCYTE ESTERASE, URINE AUTO 2+ (NEGATIVE); MUCUS, URINE SMALL (NEGATIVE); NITRITE, URINE AUTO NEGATIVE (NEGATIVE); PROTEIN, URINE AUTO NEGATIVE (NEGATIVE); RBC, URINE AUTO 1 /HPF (0-3); SPECIFIC GRAVITY URINE AUTO 1.015 (1.002-1.035); SQUAMOUS EPITHELIAL CELL UR AU 4 /HPF (0-6); UROBILINOGEN, URINE AUTO 0.2 mg/dL (0.0-2.0); WBC, URINE AUTO 2 /HPF (0-3)
[2019-09-22 17:15] LABS: ALBUMIN 3.8 GM/DL (3.2-5.2); ALT/SGPT 50 U/L (12-78); BILIRUBIN,TOTAL 0.3 MG/DL (0.2-1.0); BLOOD UREA NITROGEN 11 MG/DL (7-18); CALCIUM LEVEL 9.4 MG/DL (8.5-10.1); CARBON DIOXIDE LEVEL 28 MEQ/L (21-32); CHLORIDE LEVEL 102 MEQ/L (98-107); CHOLESTEROL LEVEL 221 MG/DL (<200); CREATININE FOR GFR 0.78 MG/DL (0.55-1.30); FERRITIN 166 NG/ML (8-252); FOLATE 13.1 NG/ML; GLOMERULAR FILTRATION RATE > 60.0 (>58); GLUCOSE, FASTING 103 MG/DL (70-100); HDL CHOLESTEROL 49 MG/DL (>40); IRON (FE) 64 UG/DL (50-170); LDL CHOLESTEROL 138 MG/DL (<100); NON-HDL-C 172 MG/DL; POTASSIUM SERUM 4.2 MEQ/L (3.5-5.1); SODIUM LEVEL 138 MEQ/L (136-145); TOTAL PROTEIN 7.7 GM/DL (6.4-8.2); TRIGLYCERIDES LEVEL 170 MG/DL (<150); VITAMIN B12 LEVEL 652 PG/ML
== END ==
LOC: M SFHCCAPE 09:44
PROVIDERS: ATTEND Physician Assistant
DX: D64.9 Anemia, unspecified (principal); I10 Essential (primary) hypertension; N73.9 Female pelvic inflammatory disease, unspecified

== ENCOUNTER → 2019-09-28 | Outpatient (CLI) | payer OTHER, SELFPAY ==
--- NOTE | 2019-09-29 08:13 | REP ---
Clinical: Follow up ovarian cyst. Comparison: 08/30/2019. Technique: Transabdominal pelvic ultrasound followed by transvaginal examination for better evaluation of the endometrium and adnexa. Findings: Bladder is partially distended and poorly evaluated. Anteverted uterus measures 7.9 x 4.5 x 5.7 cm. Endometrial complex measures 5.2 mm thickness. Bilateral ovaries are normal in vascularity without torsion. Right ovary measures 5.2 x 4.5 x 3.8 cm and includes multiple simple and complex cysts - the largest measuring 3.3 x 2.6 x 2.1 cm and similar to prior examination. Left ovary measures 3.4 x 1.6 x 3.4 cm. No pelvic fluid or adnexal mass lesion. Impression: 1. Relatively normal appearance to the uterus. 2. Cystic changes to the bilateral ovaries on prior examination appear to be decreased/improving with only a few residual simple and complex cysts noted in the right ovary measuring up to 3.3 cm.
== END ==
LOC: M WHC 13:45
PROVIDERS: ATTEND Specialist
DX: N83.209 Unspecified ovarian cyst, unspecified side (principal)